=== PATIENT | male | born 1940 ===

== ENCOUNTER 2022-09-07 03:29 | Outpatient (CLI) | payer MEDICARE, SELFPAY ==
--- NOTE | 2022-09-07 09:15 | DI.NM_ITS ---
APPROVED REPORT Exam: Pharmacologic Patient Location: Out-Patient Room/Bed: Stress Nurse: Peggy Schultz RN Ordering Provider:RYAN ABREU, Contact Number: [phone] BMI: 31.32 Baseline Rhythm: Atrial Fibrillation Comment: Rare PVC's Indications: Dyspnea with exertion, strong CAD and PAD Medical History Medical History: CAD, PVD, DM2, Aortic aneurysm, afib, epistaxis, CABG Cardiac Medications: Atorvastatin, diltiazam, losartan, metformin, metoprolol succinate, tamsulosin, warfarin, aspirin Allergies: Aspirin? Cardiac Risk Factors: Family hx, HTN, HLD, PVD, CVD, diabetes, former smoker Previous Cardiac Procedures: CABG Pretest Chest Pain Characteristics: None Exercise History: Sedentary Physical Disabilities: PN bilateral LE's Lung Sounds: Fine crackles right base Heart Sounds: Irregular Stress Test Details Test: Pharmacologic stress testing performed using 0.4 mg of regadenoson per 5 mL given IV over 10 s econds. Reason for pharmacologic stress test: physical limitation. Nuclear Acquisition: Rest Tc-99m/Stress Tc-99m 1 day Rest Isotope: Tc-99m Sestamibi. Dose: 10.5 Date: 09/07/2022 Injection Time: 0915 Stress Isotope: Tc-99m Sestamibi. Dose: 33.0 Date: 09/07/2022 Injection Time: 1115 HR Resting HR Supine: 76 bpm Max Heart Rate (APMHR): 140.327599 bpm Target HR (85% APMHR): 119.077900 bpm Max HR Achieved: 125 bpm % of APMHR: 89.29 Recovery HR: 75 bpm BP Resting BP Supine: 142/80 mmHg Max BP: 142/80 mmHg Recovery BP: 122/74 mmHg ECG Resting ECG: Atrial Fibrillation Ectopy: Rare PVC's Stress ECG: Atrial Fibrillation ST Change: No significant ST segment changes noted Arrhythmia: Rare PVC's Recovery ECG: Atrial Fibrillation Recovery ST Change: No significant ST segment changes noted Recovery Arrhythmia: Rare PVC's Clinical Stress Symptoms: Dyspnea Angina Score: None Rate Pressure Product: [id number] Stress ECG Conclusion 1. The resting electrocardiogram showed atrial fibrillation, late transition 2. Patient underwent pharmacologic testing using regadenoson 3. Peak heart rate achieved was 89% of predicted for age 4. There was no electrocardiographic evidence of myocardial ischemia 5. See MPI report Stress Test Summary STAGE HR BP SpO2 Symptoms NOTES Supine 76 142/80 1 min post Lexiscan injection 91 124/68 Moderate SOB 3 min post Lexiscan injection 72 120/72 SOB resolved 6 min post Lexiscan injection 75 122/74 MPI Conclusion Myocardial perfusion is normal. There is no evidence of myocardial ischemia or prior infarction Ejection fraction and wall motion appear within the normal range Calculated EF is measured at 40% Radiologist Interpretation Radiologist agrees with Learning Specialist's Interpretation. Radiologist Interpretation by: Hannah Galarza MD Interpretation Date/Time: 09/11/2022 18:30:27
[2022-09-07] MEDS: Regadenoson 0.4 MG/5 ML SYR IVP (15:48)
== END 2022-09-07 03:49 ==
PROVIDERS: PCP Family Medicine; Visit Provider Family Medicine
DX: R06.00 Dyspnea, unspecified (principal)
CPT/HCPCS: 78452; 93016; 93018; 93017; J2785

== ENCOUNTER 2025-05-25 09:51 | Outpatient (CLI) | payer MEDICARE, SELFPAY ==
--- NOTE | 2025-05-25 10:00 | RT.EKG_ITS ---
APPROVED REPORT Exam: Resting ECG Reason for Exam: afib, CAD Patient Location: O HR:73 bpm ECG Measurements Heart Rate 73 [place]IS CO [id number] P [id number] QRSd 109 QRS 44 QT 413 T 62 QTc 456 Conclusion Atrial fibrillation...V-rate 49- 66, irreg A-activity
== END 2025-05-25 09:52 | disposition home or self-care (01) ==
LOC: DI.CARD 10:09
PROVIDERS: PCP Family Medicine; Referring Provider Family Medicine; Visit Provider Registered Nurse
DX: I48.91 Unspecified atrial fibrillation (principal); I25.10 Atherosclerotic heart disease of native coronary artery without angina pectoris
CPT/HCPCS: 93010

== ENCOUNTER → 2025-05-25 09:51 | Outpatient (BNVA) | payer MEDICARE, SELFPAY | PROVIDERS: PCP Family Medicine; Referring Provider Family Medicine; Visit Provider Registered Nurse | DX: I25.10 Atherosclerotic heart disease of native coronary artery without angina pectoris (principal); I48.91 Unspecified atrial fibrillation; I95.9 Hypotension, unspecified; R04.0 Epistaxis; Z79.01 Long term (current) use of anticoagulants; Z79.02 Long term (current) use of antithrombotics/antiplatelets | CPT/HCPCS: 99215; 93005 ==